=== PATIENT | female | born 1960 | race Caucasian/White ===

== ENCOUNTER 2018-01-11 00:53 | Inpatient (IN) | payer MEDICARE, OTHER ==
[~2018-01-11] VITALS: Ht 149.9 cm; Wt 45.4 kg
--- NOTE | 2018-01-11 01:30 | NUR ---
ADMISSION NOTES: ADMITTED A 57 YEARS OLD FEMALE. PATIENT FROM [facility]. PATIENT ADMITTED 5150 FOR GD. PER HOLD PATIENT HAS UNTREATED SCHIZOPHRENIA WAS NOTED TO BE DRINKING HER OWN URINE AND NOT EATING FOR 3 DAYS. PATIENT CLAIMS SHE IS WITH TWINS. PT IS DELUSIONAL. PT DENIES SI/HI. UPON FACE TO FACE ASSESSMENT PATIENT ALERT AND ORIENTED X2, DISORGANIZED, DISORIENTED, PARANOID, DELUSIONAL . V/S STABLE, NO SOB, RESPIRATION EVEN AND UNLABORED. NO COMPLAIN OF PAIN/DISCOMFORT AT THIS TIME. CHECK FOR CONTRABAND ITEMS. PUT IT IN SAFE CABINET. SKIN/BODY ASSESSMENT DONE. WOUND CONSULT TRIGGERED. MRSA DONE. PATIENT WAS ORIENTED IN THE UNIT AND UNIT POLICIES. REFUSED TO SIGN CONSENT FORMS. ALL NEEDS ATTENDED AND ANTICIPATED. DR. AMANDA FOR PSYCH AND DR. JALLOH FOR MEDICAL WAS MADE AWARE OF THE ADMISSION. ALL NEEDS ATTENDED AND ANTICIPATED. WILL CONTINUE TO MONITOR FOR SAFETY AND BEHAVIOR [id number].
[2018-01-11 01:40] VITALS: BP 120/73
--- NOTE | 2018-01-11 02:04 | NUR ---
SKIN ASSESSMENT: OBTAINED CONSENT FOR PERFORMING BODY CHECK, DEBBIE KAUR TANDEM BODY, WITNESS, PT AGREE TO HAVE BODY CHECK DONE AND GIVEN HER CONSENT TO TAKE PICTURE OF SKIN ISSUES AND PHOTO OF HER FACE. INITIAL BODY CHECK PERFORMED WITH DEBBIE KAUR, NOTED THE FOLLOWING SKIN ISSUES: RIGHT EAR REDNESS (PT STATED SHE'S BEEN USING MASK EVEN AT HOME TO "LESSEN GERMS" CHIN REDNESS LEFT BREAST FOLD EXCORIATION REDNESS WITH ODOR BILATERAL KNEE BRUISES AND ABRASION, PER PT SHE HAD KNEE SURGERY ON October NOTED LEFT LOWER ABDOMEN SURGICAL SCAR, PT CLAIMED SHE HAS BACLOFEN PUMP IN PLACED TO MANAGE HER PAIN LEFT GREAT TOENAIL FUNGUS PERINEAL REDNESS, EXCORIATION WILL OBTAIN WOUND CARE CONSULT AND WILL RECOMMEND PODIATRY CONSULT FOR TOENAIL FUNGUS
[2018-01-11] MEDS ORDERED: LORAZEPAM 0.5 MG TABLET PO PRN (03:00)
[2018-01-11] MEDS ORDERED: MAG HYDROX/AL HYDROX/SIMETH 30 ML UDC PO PRN (03:00)
[2018-01-11] MEDS ORDERED: MAGNESIUM HYDROXIDE 30 ML UDC PO PRN (03:00)
[2018-01-11] MEDS ORDERED: ZOLPIDEM TARTRATE 5 MG TABLET PO PRN ×2 (03:00→08:30)
[2018-01-11] MEDS ORDERED: HYDR-3980 PO (03:59)
[2018-01-11] MEDS ORDERED: ALEN70TA45 PO (03:59)
[2018-01-11] MEDS ORDERED: RISP2TAB23 PO (03:59)
[2018-01-11] MEDS ORDERED: METO-356 PO (03:59)
[2018-01-11] MEDS ORDERED: LEVE500T20 PO (03:59)
[2018-01-11 04:45] VITALS: BP 120/73
[2018-01-11] MEDS ORDERED: HYDROCODONE/APAP 10/325MG 1 EA TABLET PO PRN (05:00)
[2018-01-11] MEDS ORDERED: HYDROCODONE/APAP 10/325MG 1 EA TABLET ONE (05:02)
--- NOTE | 2018-01-11 05:30 | NUR ---
JONNIE JALLOH (MUTTON PUNCHER) 3X TO RECONCILE THE MEDS. SAID SHE WILL RECONCILE THE MEDS. WILL ENDORSE TO NEXT SHIFT NURSE FOR FOLLOW UP.
--- NOTE | 2018-01-11 06:56 | NUR ---
ASK THE PT WITH CHARGE NURSE (JEREMIAH) WITNESSED IF SHE'S ALLERGIC TO HYDROCODONE AND ACETAMINOPHEN MEDICATION. PT SAID I'M NOT ALLERGIC TO IT BECAUSE THAT'S THE MEDICATION I'M TAKING FOR MY PAIN AT HOME.
[2018-01-11 08:00] VITALS: BP 133/65
[2018-01-11] MEDS ORDERED: DIAZ5TAB4 PO (08:15)
[2018-01-11] MEDS ORDERED: CYCL30DR EACHEYE (08:15)
[2018-01-11] MEDS ORDERED: ATOR10TA PO (08:15)
[2018-01-11] MEDS ORDERED: QUET25TA PO (08:15)
[2018-01-11] MEDS: Z GUARD REMEDY 2 OZ OINT TP SCH (11:19)
[2018-01-11] MEDS ORDERED: diphenhydrAMINE HCL 50 MG CAPSULE PO PRN ×2 (15:00→15:30)
--- NOTE | 2018-01-11 15:43 | NUR ---
GPS/RN-NOTES PATIENT REQUESTING TYLENOL FOR HER HEADACHE.LATEX CASTER ABOUT TO GIVE TYLENOL 650MG PRN ORDER BUT PATIENT CHANGE HER MIND AND STATED" NO I DON'T WANT IT". MEDICATION WAS WASTED AND WITNESS BY THE CHARGE NURSE.
[2018-01-11 16:00] VITALS: BP 122/73
--- NOTE | 2018-01-11 16:47 | NUR ---
GPS/RN-NOTES URINE SPECIMEN WAS COLLECTED AND SEND TO LAB.
[2018-01-11 17:09] LABS: APPEARANCE,URINE CLEAR (CLEAR); BILIRUBIN,URINE NEGATIVE (NEGATIVE); BLOOD, URINE NEGATIVE Ery/uL (NEGATIVE); COLOR,URINE YELLOW (YELLOW); KETONES,URINE 2+ (NEGATIVE); LEUKOCYTE ESTERASE ,URINE NEGATIVE (NEGATIVE); NITRITE, URINE NEGATIVE (NEGATIVE); PH,URINE 6.5 (5.0-8.0); PROTEIN,URINE NEGATIVE (NEGATIVE); UGLUCOSE NEGATIVE (NEGATIVE); UROBILINOGEN,URINE 0.2 EU/dL (0.2)
[2018-01-11 17:23] LABS: RBC,URINE 0-2 /HPF (0-2); WBC,URINE 0-2 /HPF (0-3)
[2018-01-11 17:24] LABS: BACTERIA,URINE Few /HPF (None Seen); SQUAMOUS EPITHELIAL CELL,UR Moderate /HPF (None Seen)
--- NOTE | 2018-01-11 19:10 | NUR ---
GPS RN NOTE Patient was seen lying in bed AAOx2, no signs of acute distress, but appeared to be guarded with flat affect. Patient was wearing a face mask due to anxiety related to the spread of germs. Patient's appearance is unkempt. Patient currently has no needs or concerns. Will continue to monitor.
[2018-01-11 20:00] VITALS: BP 131/88
[2018-01-11] MEDS: LEVETIRACETAM (250 MG) 250 MG TABLET PO SCH ×2 (21:00→21:21)
[2018-01-11] MEDS: ACETAMINOPHEN 325 MG TABLET PO PRN (21:21)
[2018-01-11] MEDS: QUETIAPINE FUMARATE 25 MG TABLET PO SCH ×2 (21:21→21:29)
--- NOTE | 2018-01-11 21:29 | NUR ---
GPS RN NOTE - Pt refused meds Patient requested Tylenol for headache. I told her I would get her Tylenol along with her two scheduled medications for the night; the patient was agreeable to this. Upon return with the medications Tylenol, Keppra, and Seroquel, the patient refused all medications. The patient claimed that she did not have any medications scheduled for the night and also claimed that she only took medications in liquid form, not pill form. The patient also refused Tylenol, claiming that she would not take the tablet form, she would only take the capsule form. The patient was clearly agitated, and said "Thank you! Go away now! Good night! Research your medications next time!". I exited the room. The patient is currently in quiet in bed.
[2018-01-12 08:00] VITALS: BP 130/82
[2018-01-12] MEDS: LEVETIRACETAM (250 MG) 250 MG TABLET PO SCH (09:00)
[2018-01-12] MEDS: ATORVASTATIN 10 MG TABLET PO SCH (09:00)
[2018-01-12] MEDS: METOPROLOL SUCCINATE 25 MG TAB.SR.24H PO SCH (09:00)
[2018-01-12] MEDS ORDERED: ESCITALOPRAM OXALATE (10 MG) 10 MG TABLET PO SCH (09:00)
[2018-01-12] MEDS: Z GUARD REMEDY 2 OZ OINT TP SCH (09:03)
--- NOTE | 2018-01-12 09:20 | NUR ---
GPS/RN-NOTES PATIENT REFUSED ALL 0900AM MEDICATIONS. EXPLAINED RISK AND BENEFITS BUT PATIENT GETS ANGRY AND ARGUMENTATIVE WITH THE STAFF SONOGRAPHER. STATED" I WILL NEVER TAKE ANY OF YOUR MEDICATIONS, YOU CAN TAKE IT YOUR SELF IF YOU WANT". OFFERED X3.
--- NOTE | 2018-01-12 10:35 | NUR ---
GPS/RN-NOTES PATIENT REFUSED LAB DRAW DESPITE SEVERAL ATTEMPT BY THE LAB STAFF.
--- NOTE | 2018-01-12 13:47 | NUR ---
GPS/RN-NOTES SEEN BY DR. HORNE WITH VERBAL ORDER OF ENSURE TID. NOTED AND CARRIED OUT. Addendum: 01/12/18 at 1349 by ALE LOUIS RN MD AVILA MADE AWARE OF PATIENT LABS RESULTS.
--- NOTE | 2018-01-12 13:58 | NUR ---
GPS/RN-NOTES DR. HORNE ALSO MADE AWARE OF PATIENT NON COMPLIANT WITH MEDICATIONS.
[2018-01-12 16:16] VITALS: BP 130/76
[2018-01-12] MEDS: ENSURE ENLIVE 237 ML LIQUID (VANILLA) PO SCH (17:00)
[2018-01-12] MEDS: BENZTROPINE MESYLATE (1 MG) 1 MG TABLET PO SCH (17:00)
[2018-01-12] MEDS: HALOPERIDOL 5 MG TABLET PO SCH (17:00)
--- NOTE | 2018-01-12 17:50 | NUR ---
GPS/RN-NOTES PATIENT REFUSED ALL 1700 MEDICATIONS. STATED" YOUR MEDICINE IS FULL OF CRAP,TAKE IT YOURSELF". OFFERED X3.
--- NOTE | 2018-01-12 19:30 | NUR ---
RN NOTES RECEIVED PATIENT IN BED AWAKE, AO X 4, ABLE TO MAKE NEEDS KNOWN. NO ACUTE DISTRESS NOTED. DENIES ANY PAIN AT THIS TIME. DENIERS SI/HI AT THIS TIME. SAFETY REMINDERS GIVEN. ON LOW BED WITH BILATERAL UPPER SIDE RAILS UP. CALL SALAZAR WITHIN EASY REACH. WILL CONTINUE TO MONITOR.
[2018-01-12 20:00] VITALS: BP 126/74
[2018-01-12 20:10] VITALS: BP 126/74
[2018-01-12] MEDS: DIVALPROEX SODIUM 125 MG CAP.SPRINK PO SCH (21:00)
[2018-01-12] MEDS: LEVETIRACETAM SOL (5 ML) 100 MG/ML UDC PO SCH (21:00)
--- NOTE | 2018-01-12 21:21 | NUR ---
RN NOTES PATIENT REFUSED BOTH DEPAKOTE AND LIQUID KEPPRA. PATIENT STATED THAT THEY "ARE NOT THE RIGHT ONES." PER PATIENT, THE MEDICINES "DO NOT LOOK RIGHT." IMPORTANCE OF TAKING THE MEDICINE WAS EXPLAINED TO PATIENT. PATIENT STILL STRONGLY REFUSED TO TAKE MEDICINE.
--- NOTE | 2018-01-13 06:33 | NUR ---
RN NOTES PATIENT ASLEEP, EASILY AROUSABLE. RESPIRATIONS EVEN. NO SIGNS OF PAIN NOTED. NEEDS ATTENDED. KEPT CLEAN, DRY, AND COMFORTABLE. SAFETY PRECAUTIONS AND COMFORT MEASURES IN PLACE. WILL GIVE REPORT TO DAY SHIFT FOR CONTINUITY OF CARE.
[2018-01-13 08:00] VITALS: BP 116/68
[2018-01-13] MEDS: ENSURE ENLIVE 237 ML LIQUID (VANILLA) PO SCH ×3 (08:00→16:56)
[2018-01-13] MEDS: HALOPERIDOL 5 MG TABLET PO SCH (08:59)
[2018-01-13] MEDS: BENZTROPINE MESYLATE (1 MG) 1 MG TABLET PO SCH (08:59)
[2018-01-13] MEDS: DIVALPROEX SODIUM 125 MG CAP.SPRINK PO SCH (08:59)
[2018-01-13] MEDS: Z GUARD REMEDY 2 OZ OINT TP SCH (09:00)
[2018-01-13] MEDS: METOPROLOL SUCCINATE 25 MG TAB.SR.24H PO SCH (09:00)
[2018-01-13] MEDS: LEVETIRACETAM SOL (5 ML) 100 MG/ML UDC PO SCH ×2 (09:00→20:50)
[2018-01-13] MEDS: ATORVASTATIN 10 MG TABLET PO SCH (09:00)
[2018-01-13] MEDS ORDERED: HALOPERIDOL 5 MG TABLET PO SCH (10:30)
[2018-01-13] MEDS ORDERED: HALOPERIDOL ORAL CONC 2 MG/ML BOTTLE PO SCH (11:28)
[2018-01-13] MEDS ORDERED: HALOPERIDOL LACTATE 10 MG/5 ML UDC PO SCH (11:31)
[2018-01-13] MEDS: HALOPERIDOL LACTATE 10 MG/5 ML UDC PO SCH ×2 (12:05→16:47)
[2018-01-13 16:16] VITALS: BP 137/99
[2018-01-13 20:14] VITALS: BP 157/98
[2018-01-14] MEDS: ENSURE ENLIVE 237 ML LIQUID (VANILLA) PO SCH ×3 (08:00→16:27)
[2018-01-14 08:22] VITALS: BP 128/74
[2018-01-14] MEDS: ATORVASTATIN 10 MG TABLET PO SCH (08:29)
[2018-01-14] MEDS: LEVETIRACETAM SOL (5 ML) 100 MG/ML UDC PO SCH ×2 (08:29→21:18)
[2018-01-14] MEDS: HALOPERIDOL LACTATE 10 MG/5 ML UDC PO SCH ×2 (08:29→16:27)
[2018-01-14] MEDS: METOPROLOL SUCCINATE 25 MG TAB.SR.24H PO SCH (08:30)
[2018-01-14] MEDS: BENZTROPINE MESYLATE (1 MG) 1 MG TABLET PO PRN ×2 (08:30→16:27)
[2018-01-14] MEDS: Z GUARD REMEDY 2 OZ OINT TP SCH (11:11)
--- NOTE | 2018-01-14 14:04 | NUR ---
ROSE called the pt's brother, Fox ([phone]), but after a few seconds the dial tone changed into a fax dial tone. The SW will ask the pt to confirm that this is the correct number.
--- NOTE | 2018-01-14 14:07 | NUR ---
ROSE called Alejandra Loredo ([phone]) from [facility] [employer] ([facility]) and left a voicemail stating that the SW would like some more information on a patient.
--- NOTE | 2018-01-14 15:13 | NUR ---
Initial Discharge Plan: Pt currently resides by herself in an apartment located at [address] [place] [address], [place] [address]; ([phone]). Per pt, she would either like to go home or be transferred to a nursing home facility. SW will work with the pt and the MD regarding appropriate discharge planning. SW will form a safe and proper discharge.
--- NOTE | 2018-01-14 16:16 | NUR ---
ROSE faxed a referral for the pt to a alf facility called [facility] to the fax number: [phone].
[2018-01-14 16:18] VITALS: BP 127/75
--- NOTE | 2018-01-14 16:51 | NUR ---
Patient arrived from GPS to be a part of GPS overflow, patient aox3. nonlabored breathing noted on room air. Denying pain at the moment. Denying HI and SI ideation. No sharp objects at bedside. Sitter at bedside. Bed in lowest locked position
[2018-01-14 16:53] VITALS: BP 123/97
--- NOTE | 2018-01-14 19:30 | NUR ---
MS/RN PATIENT AWAKE, ALERT, ORIENTED, COMFORTABLE AND CALM, NO DISTRESS NOTED, SITTER AT BEDSIDE. WILL MONITOR.
--- NOTE | 2018-01-14 23:00 | NUR ---
MS/RN PATIENT IS SLEEPING AT THIS TIME, AROUSABLE, APPEAR COMFORTABLE, NO SIGNS OF DISTRESS NOTED, CALL LIGHT IN REACH. WILL CONTINUE TO MONITOR.
--- NOTE | 2018-01-15 06:44 | NUR ---
MS/RN PATIENT IS AWAKE, COMFORTABLE, NO C/O PAIN, NO SIGNS OF DISTRESS NOTED, ALL NEEDS ATTENDED AT THIS TIME, WILL CONTINUE TO MONITOR.
--- NOTE | 2018-01-15 07:35 | NUR ---
RN NOTES PATIENT A/OX2, NO DISTRESS NOTED, SITTER AT BEDSIDE, KEPT COMFORTABLE, DENIES PAIN OR DISCOMFORT, NEEDS ATTENDED AND MET, CALL LIGHT WITHIN REACH, WILL CONTINUE TO MONITOR.
[2018-01-15] MEDS: ENSURE ENLIVE 237 ML LIQUID (VANILLA) PO SCH ×3 (08:00→16:22)
[2018-01-15] MEDS: ATORVASTATIN 10 MG TABLET PO SCH (09:00)
[2018-01-15] MEDS: METOPROLOL SUCCINATE 25 MG TAB.SR.24H PO SCH (09:32)
[2018-01-15] MEDS: LEVETIRACETAM SOL (5 ML) 100 MG/ML UDC PO SCH ×3 (09:32→21:43)
[2018-01-15] MEDS: Z GUARD REMEDY 2 OZ OINT TP SCH (09:35)
[2018-01-15] MEDS: CHOLECALCIFEROL 1,000 UNIT TABLET (VIT D3) PO SCH (11:15)
[2018-01-15] MEDS: HALOPERIDOL LACTATE 10 MG/5 ML UDC PO SCH ×2 (11:15→16:21)
--- NOTE | 2018-01-15 14:19 | NUR ---
SW received confirmation from [facility] from [place] ([phone]) that the pt was accepted.
--- NOTE | 2018-01-15 14:20 | NUR ---
ROSE spoke to the pt's brother, Larry Hoskins ([phone]), and informed about the discharge plan and he agreed to have his sister be transferred to [facility].
--- NOTE | 2018-01-15 18:44 | NUR ---
RN NOTES PATIENT DENIES SI, PATIENT STATED SHE'S AND SHE'S DUE ON SEPTEMBER. PATIENT'S ABDOMEN APPEARS TO BE ROUND, INFORMED DR. AMANDA AND RECEIVED ORDER FOR URINE TEST. UA SAMPLE PROVIDED BY PATIENT AND SENT TO LAB. PATIENT IN NO DISTRESS. BREATHING EVEN AND UNLABORED, SITTER AT BEDSIDE, NEEDS ATTENDED, WILL ENDORSE TO MERCURY RECOVERER FOR SIMON.
[2018-01-15 20:00] VITALS: BP 133/70
--- NOTE | 2018-01-15 20:00 | NUR ---
MS/RN RECEIVE PATIENT AWAKE, ALERT, ORIENTED, COMFORTABLE, NO C/O PAIN, NO DISTRESS NOTED, SITTER AT BEDSIDE, WILL MONITOR.
[2018-01-16 08:00] VITALS: BP 128/82
[2018-01-16] MEDS: ENSURE ENLIVE 237 ML LIQUID (VANILLA) PO SCH ×3 (08:00→16:20)
[2018-01-16] MEDS: CHOLECALCIFEROL 1,000 UNIT TABLET (VIT D3) PO SCH (08:42)
[2018-01-16] MEDS: METOPROLOL SUCCINATE 25 MG TAB.SR.24H PO SCH (08:42)
[2018-01-16] MEDS: LEVETIRACETAM SOL (5 ML) 100 MG/ML UDC PO SCH ×2 (08:42→20:28)
[2018-01-16] MEDS: HALOPERIDOL LACTATE 10 MG/5 ML UDC PO SCH ×3 (08:42→17:00)
[2018-01-16] MEDS: ATORVASTATIN 10 MG TABLET PO SCH (08:46)
[2018-01-16] MEDS: Z GUARD REMEDY 2 OZ OINT TP SCH (08:49)
[2018-01-16] MEDS ORDERED: HALOPERIDOL DECANOATE IM 100 MG/ML AMPUL IM ONE ×2 (11:30→12:25)
[2018-01-16 16:00] VITALS: BP_SYST 105; BP_DIAS 54; BP_DIAS 84
--- NOTE | 2018-01-16 17:16 | NUR ---
GPS OVERFLOW RN NOTES: MEDICATION NON ADMINISTRATION ' PT REFUSED 1300/1700 HALDOL. PER PT "I AM NOT GOING TO TAKE ANYMORE TODAY. I ALREADY HAD THE SHOT. I WILL TALK TO THE DOCTOR IN THE MORNING. I WILL NOT BE OVERLY MEDICATED." MEDICATION EDUCATION ALONG WITH RISKS AND BENEFITS DISCUSSED WITH PT.
--- NOTE | 2018-01-16 18:29 | NUR ---
GPS OVERFLOW CLOSING NOTES PT REMAINS STABLE. ALL NEEDS ANTICIPATED FOR AND MET. ALL DUE MEDS GIVEN. SHE CONTINUES TO DENY ANY SI/HI AT THIS TIME. SAFETY MEASURES IN PLACE. WILL ENDORSE TO NIGHTSHIFT NURSE FOR SIMON
--- NOTE | 2018-01-16 19:10 | NUR ---
RN NOTES RECEIVED PT IN BED, RESTING COMFORTABLY AT THIS TIME, AROUSES EASILY. A/O X 2, VERBALLY RESPONSIVE. NO DISTRESS, NO SOB NOTED. RESPIRATION IS EVEN AND UNLABORED. NO C/O PAIN OR DISCOMFORT AT THIS TIME. PT ON 1:1 SITTER FOR SAFETY. ALL NEEDS ATTENDED AND MET. KEPT COMFORTABLE. SAFETY PRECAUTIONS OBSERVED. WILL CONT TO MONITOR.
[2018-01-16] MEDS: HYDROCODONE/APAP 10/325MG 1 EA TABLET PO PRN (22:45)
--- NOTE | 2018-01-17 03:35 | NUR ---
PT C/O NAUSEA, NO VOMITING NOTED. PLACED A CALL TO [facility], PER HOTEL OR MOTEL CLEANING SUPERVISOR , THEY WILL PAGE DR. FIERRO, AWAITING FOR A CALL BACK.
--- NOTE | 2018-01-17 04:00 | NUR ---
RECEIVED A CALL BACK FROM DR. FIERRO, NOTIFIED REGARDING PT C/O NAUSEA , RECEIVE AN ORDER FOR ZOFRAN 4 MG Q 6 HOURS PRN, NOTED AND CARRIED OUT
[2018-01-17] MEDS ORDERED: ONDANSETRON HCL 4 MG/5 ML SOLUTION PO PRN (04:30)
[2018-01-17] MEDS ORDERED: ONDANSETRON 4 MG TAB.RAPDIS PO PRN (05:30)
--- NOTE | 2018-01-17 06:35 | NUR ---
RN NOTES PT IN BED, RESTING COMFORTABLY AT THIS TIME, AROUSES EASILY. A/O X 2, VERBALLY RESPONSIVE. NO DISTRESS, NO SOB NOTED. RESPIRATION IS EVEN AND UNLABORED. NO C/O PAIN OR DISCOMFORT AT THIS TIME. PT ON 1:1 SITTER FOR SAFETY. ALL NEEDS ATTENDED AND MET. KEPT COMFORTABLE. SAFETY PRECAUTIONS OBSERVED. WILL ENDORSE TO NEXT SHIFT FOR SIMON..
[2018-01-17 08:00] VITALS: BP 136/76
[2018-01-17] MEDS: ENSURE ENLIVE 237 ML LIQUID (VANILLA) PO SCH ×3 (08:00→16:02)
[2018-01-17] MEDS: ATORVASTATIN 10 MG TABLET PO SCH (08:07)
[2018-01-17] MEDS: METOPROLOL SUCCINATE 25 MG TAB.SR.24H PO SCH (08:31)
[2018-01-17] MEDS: CHOLECALCIFEROL 1,000 UNIT TABLET (VIT D3) PO SCH (08:31)
[2018-01-17] MEDS: LEVETIRACETAM SOL (5 ML) 100 MG/ML UDC PO SCH ×2 (08:32→21:12)
[2018-01-17] MEDS: HALOPERIDOL LACTATE 10 MG/5 ML UDC PO SCH ×3 (08:33→16:02)
[2018-01-17] MEDS: Z GUARD REMEDY 2 OZ OINT TP SCH (08:35)
[2018-01-17 16:00] VITALS: BP 122/76
--- NOTE | 2018-01-17 16:02 | NUR ---
GPS OVERFLOW RN NOTES: HALDOL MEDICATION ADMINISTRATION PT REFUSED 1300/[address] AMANDA MADE AWARE AND STATES "IT'S OKAY IF SHE REFUSED FOR NOW SHE HAS ALREADY HAD THE IM INJECTION YESTERDAY"
--- NOTE | 2018-01-17 19:20 | NUR ---
RN NOTES RECEIVED PT IN BED, RESTING COMFORTABLY AT THIS TIME, AROUSES EASILY. A/O X 2, VERBALLY RESPONSIVE. NO DISTRESS, NO SOB NOTED. RESPIRATION IS EVEN AND UNLABORED. PT WEARS MASK ALL THE TIME, REFUSED TO REMOVE IT, RISK AND BENEFITS EXPLAINED. NO C/O PAIN OR DISCOMFORT AT THIS TIME. PT ON 1:1 SITTER FOR SAFETY. ALL NEEDS ATTENDED AND MET. KEPT COMFORTABLE. SAFETY PRECAUTIONS OBSERVED. WILL CONT TO MONITOR.
[2018-01-17 20:07] VITALS: BP 103/51
[2018-01-18] MEDS: HYDROCODONE/APAP 10/325MG 1 EA TABLET PO PRN ×2 (03:13→18:10)
--- NOTE | 2018-01-18 06:49 | NUR ---
RN NOTES PT IN BED, , AWAKE, A/O X 2, VERBALLY RESPONSIVE. NO DISTRESS, NO SOB NOTED. RESPIRATION IS EVEN AND UNLABORED. NO C/O PAIN OR DISCOMFORT AT THIS TIME. PT ON 1:1 SITTER FOR SAFETY. ALL NEEDS ATTENDED AND MET. KEPT COMFORTABLE. DUE MEDS GIVEN. SAFETY PRECAUTIONS OBSERVED. WILL ENDORSE TO NEXT SHIFT FOR SIMON.
--- NOTE | 2018-01-18 07:38 | NUR ---
RN OPENING NOTES RECEIVED PT. PT IS STABLE, RESTING IN BED. SITTER IS BEDSIDE. PT IS ADM FOR GPS OVERFLOW. A/OX2, NO S/S OF RESP DISTRESS OR C/O SOB. NO C/O PAIN. PT REMAINS CALM, NO DISTRESS NOTED, HOWEVER BEHAVIOR IS SOMEWHAT INAPPROPRIATE THE PT REFUSES TO REMOVE SUNGLASSES AND MASK FOR ASSESSMENT. PER TRANSPORTATION MAINTENANCE SUPERVISOR REPORT, PT FREQUENTLY REFUSES PO MEDS, HALDOL IM NOTED FOR PRN. SAFETY MEASURES IN PLACE, CALL LIGHT WITHIN REACH. WILL CONTINUE TO MONITOR.
[2018-01-18 08:00] VITALS: BP 107/65
[2018-01-18 08:10] VITALS: BP 107/65
[2018-01-18] MEDS: ENSURE ENLIVE 237 ML LIQUID (VANILLA) PO SCH ×3 (08:33→16:20)
[2018-01-18] MEDS: HALOPERIDOL LACTATE 10 MG/5 ML UDC PO SCH ×3 (08:34→16:20)
[2018-01-18] MEDS: CHOLECALCIFEROL 1,000 UNIT TABLET (VIT D3) PO SCH (08:34)
[2018-01-18] MEDS: LEVETIRACETAM SOL (5 ML) 100 MG/ML UDC PO SCH ×2 (08:37→20:53)
[2018-01-18] MEDS: METOPROLOL SUCCINATE 25 MG TAB.SR.24H PO SCH (08:37)
[2018-01-18] MEDS: ATORVASTATIN 10 MG TABLET PO SCH (08:42)
[2018-01-18] MEDS: Z GUARD REMEDY 2 OZ OINT TP SCH (08:44)
[2018-01-18] MEDS: ACETAMINOPHEN 325 MG TABLET PO PRN (14:14)
[2018-01-18 16:00] VITALS: BP 95/55
--- NOTE | 2018-01-18 18:39 | NUR ---
RN CLOSING NOTE PT IN BED RESTING. NO S/S OF RESP DISTRESS OR SOB. NO C/O PAIN. PT GIVEN NORCO AT 1810 FOR C/O PAIN IN NECK/BACK. PT CONTINUED TO REFUSE HALDOL THROUGHOUT SHIFT, MD AWARE. SAFETY MEASURES IN PLACE, CALL LIGHT WITHIN REACH. WILL ENDORSE TO CAUSTIC ROOM OPERATOR FOR SIMON.
--- NOTE | 2018-01-18 19:30 | NUR ---
RN NOTES RECEIVED PT. AWAKE ON BED, SITTER AT BEDSIDE, A/OX2, CALM AND COOPERATIVE AT TIMES, CALL LIGHT WITHIN REACH, WILL CONTINUE TO MONITOR
[2018-01-18 20:00] VITALS: BP 108/66
--- NOTE | 2018-01-19 06:42 | NUR ---
RN NOTES AWAKE , SITTER AT BEDSIDE, MORNING CARE RENDERED, PT. NEEDS ATTENDED,
[2018-01-19] MEDS: LEVETIRACETAM SOL (5 ML) 100 MG/ML UDC PO SCH ×4 (08:31→22:17)
[2018-01-19] MEDS: ENSURE ENLIVE 237 ML LIQUID (VANILLA) PO SCH ×3 (08:31→16:27)
[2018-01-19] MEDS: ATORVASTATIN 10 MG TABLET PO SCH (08:31)
[2018-01-19] MEDS: CHOLECALCIFEROL 1,000 UNIT TABLET (VIT D3) PO SCH (08:31)
[2018-01-19] MEDS: ACETAMINOPHEN 325 MG TABLET PO PRN ×2 (08:31→17:41)
[2018-01-19] MEDS: METOPROLOL SUCCINATE 25 MG TAB.SR.24H PO SCH (08:32)
[2018-01-19] MEDS: HALOPERIDOL LACTATE 10 MG/5 ML UDC PO SCH ×3 (08:35→16:27)
[2018-01-19] MEDS: Z GUARD REMEDY 2 OZ OINT TP SCH (08:38)
--- NOTE | 2018-01-19 09:18 | NUR ---
RN OPENING NOTES RECEIVED PT. PT IS STABLE, RESTING IN BED. SITTER IS BEDSIDE. PT IS ADM FOR GPS OVERFLOW. A/OX2, NO S/S OF RESP DISTRESS OR C/O SOB. NO C/O PAIN. PT REMAINS CALM, NO DISTRESS NOTED, HOWEVER BEHAVIOR IS SOMEWHAT INAPPROPRIATE THE PT REFUSES TO REMOVE SUNGLASSES AND MASK FOR ASSESSMENT. PT CONTINUES TO REFUSE HALDOL AND ATTEMPT TO MODIFY MEDICATION DOSAGES, CONTINUE TO REORIENT AND SET BOUNDARIES. SAFETY MEASURES IN PLACE, CALL LIGHT WITHIN REACH. WILL CONTINUE TO MONITOR.
[2018-01-19 11:02] VITALS: BP 122/85
[2018-01-19] MEDS: HYDROCODONE/APAP 10/325MG 1 EA TABLET PO PRN (14:56)
[2018-01-19 16:24] VITALS: BP 145/90
--- NOTE | 2018-01-19 18:40 | NUR ---
RN CLOSING NOTE PT IN BED RESTING. NO S/S OF RESP DISTRESS OR SOB. NO C/O PAIN. PT GIVEN NORCO AT 1810 FOR C/O PAIN IN NECK/BACK. PT CONTINUED TO REFUSE PSYCH MEDICATION THROUGHOUT SHIFT, MD AWARE. SAFETY MEASURES IN PLACE, CALL LIGHT WITHIN REACH. WILL ENDORSE TO CARE MANAGEMENT SPECIALIST FOR SIMON
--- NOTE | 2018-01-19 19:30 | NUR ---
RN NOTES RECEIVED PT. AWAKE ON BED, A/OX2, SITTER AT BEDSIDE, CALL [facility] WITHIN REACH, [id number], CONTINUE TO MONITOR
[2018-01-19 20:00] VITALS: BP 97/67
--- NOTE | 2018-01-19 21:00 | NUR ---
RN NOTES PT REFUSED HER DUE MEDICATION AND REFUSED BODY ASSESSMENT , REFUSED PHOTO WELL
--- NOTE | 2018-01-20 06:28 | NUR ---
RN NOTES AWAKE, MORNING CARE RENDERED, SITTER AT BEDSIDE, PT. NEEDS ATTENDED
--- NOTE | 2018-01-20 07:38 | NUR ---
RN OPENING NOTES RECEIVED PT. PT IS STABLE, RESTING IN BED. SITTER IS BEDSIDE. PT IS ADM FOR GPS OVERFLOW. A/OX2, NO S/S OF RESP DISTRESS OR C/O SOB. NO C/O PAIN. PT REMAINS CALM, NO DISTRESS NOTED, HOWEVER BEHAVIOR CONTINUES TO BE INAPPROPRIATE THE PT REFUSES TO REMOVE SUNGLASSES AND MASK FOR ASSESSMENT. PT CONTINUES TO REFUSE HALDOL/KEPPRA AND ATTEMPT TO MODIFY MEDICATION DOSAGES, CONTINUE TO REORIENT AND SET BOUNDARIES. SAFETY MEASURES IN PLACE, CALL LIGHT WITHIN REACH. WILL CONTINUE TO MONITOR.
[2018-01-20 08:00] VITALS: BP 96/57
[2018-01-20] MEDS: ENSURE ENLIVE 237 ML LIQUID (VANILLA) PO SCH ×3 (08:00→17:00)
[2018-01-20] MEDS: CHOLECALCIFEROL 1,000 UNIT TABLET (VIT D3) PO SCH (08:31)
[2018-01-20] MEDS: ATORVASTATIN 10 MG TABLET PO SCH (08:32)
[2018-01-20] MEDS: LEVETIRACETAM SOL (5 ML) 100 MG/ML UDC PO SCH ×2 (08:32→21:25)
[2018-01-20] MEDS: METOPROLOL SUCCINATE 25 MG TAB.SR.24H PO SCH (08:32)
[2018-01-20] MEDS: HALOPERIDOL LACTATE 10 MG/5 ML UDC PO SCH ×3 (08:32→17:00)
[2018-01-20] MEDS: ACETAMINOPHEN 325 MG TABLET PO PRN (08:32)
[2018-01-20] MEDS: Z GUARD REMEDY 2 OZ OINT TP SCH (08:41)
[2018-01-20 09:00] VITALS: BP 97/62
[2018-01-20 16:00] VITALS: BP 105/52
--- NOTE | 2018-01-20 16:24 | NUR ---
ROSE spoke to the pt's brother, Larry Hoskins ([phone]), and informed him that the pt is being discharged tomorrow.
--- NOTE | 2018-01-20 18:46 | NUR ---
RN CLOSING NOTE PT IN BED RESTING. NO S/S OF RESP DISTRESS OR SOB. NO C/O PAIN. PT GIVEN NORCO AT 1830 FOR C/O PAIN IN NECK/BACK. PT CONTINUED TO REFUSE PSYCH MEDICATION THROUGHOUT SHIFT, AWARE. PT TO BE D/C TMR TO [facility]. SAFETY MEASURES IN PLACE, CALL LIGHT WITHIN REACH. WILL ENDORSE TO SOCIALLY RESPONSIBLE INVESTMENT ADVISER FOR SIMON
--- NOTE | 2018-01-20 19:45 | NUR ---
RN OPENING NOTES RECEIVED REPORT FROM DAYSHIFT RN RHINA. FOUND Pt AWAKE, RESTING IN BED. NO S/S OF ACUTE DISTRESS OR SOB NOTED. Pt IS A/OX1-2, VERBAL, ABLE TO MAKE NEEDS KNOWN. GPS OVERFLOW. ON 5250 HOLD, EXP 01/27/18. NO IV ACCESS. SITTER AT BEDSIDE. SAFETY MEASURES IN PLACE. BED LOW, LOCKED, HOB ELEVATED, & SIDE RAILS UP. WILL CONTINUE TO MONITOR Pt THROUGHOUT THE NIGHT FOR SAFETY. DC TOMORROW TO [facility] AND WILL CONTINUE 5250 HOLD FROM THERE.
[2018-01-20 20:00] VITALS: BP 95/55
[2018-01-21] MEDS: ACETAMINOPHEN 325 MG TABLET PO PRN (03:21)
--- NOTE | 2018-01-21 06:45 | NUR ---
RN CLOSING NOTES NO SIGNIFICANT CHANGES IN Pt's CONDITION. Pt REMAINS STABLE AT THIS TIME. NO S/S OF ACUTE DISTRESS OR SOB NOTED DURING THE NIGHT. ALL NEEDS MET AND ATTENDED TO. SAFETY MEASURES IN PLACE. BED LOW, LOCKED, HOB ELEVATED, & SIDE RAILS UP. SITTER AT BEDSIDE. Pt BEING DISCHARGED TODAY TO [id number] SCHEDULED FOR COMPUTER ANALYST AT 11AM. WILL ENDORSE TO DAYSHIFT RN FOR Pt's SIMON.
--- NOTE | 2018-01-21 07:45 | NUR ---
RN GPS OVERFLOW OPENING NOTES RECEIVED Pt AWAKE, RESTING IN BED. NO S/S OF ACUTE DISTRESS OR SOB NOTED. Pt IS A/OX1-2, VERBAL, ABLE TO MAKE NEEDS KNOWN. GPS OVERFLOW. ON 5250 HOLD, EXP 01/27/18. NO IV ACCESS. SITTER AT BEDSIDE. SAFETY MEASURES IN PLACE. BED LOW, LOCKED, HOB ELEVATED, & SIDE RAILS UP. WILL CONTINUE TO MONITOR POSSIBLE DC TOMORROW TO [facility] AND WILL FOLLOW UP WITH MD AND PSYCHIATRIST
[2018-01-21 08:00] VITALS: BP 112/60
[2018-01-21] MEDS: ENSURE ENLIVE 237 ML LIQUID (VANILLA) PO SCH ×2 (08:00→12:00)
[2018-01-21] MEDS: HALOPERIDOL LACTATE 10 MG/5 ML UDC PO SCH (09:00)
[2018-01-21] MEDS: ATORVASTATIN 10 MG TABLET PO SCH ×2 (09:00→09:18)
[2018-01-21] MEDS: LEVETIRACETAM SOL (5 ML) 100 MG/ML UDC PO SCH (09:17)
[2018-01-21 09:18] VITALS: BP 112/60
[2018-01-21] MEDS: CHOLECALCIFEROL 1,000 UNIT TABLET (VIT D3) PO SCH (09:18)
[2018-01-21] MEDS: METOPROLOL SUCCINATE 25 MG TAB.SR.24H PO SCH (09:18)
[2018-01-21] MEDS: Z GUARD REMEDY 2 OZ OINT TP SCH (09:25)
--- NOTE | 2018-01-21 10:45 | NUR ---
RN NOTES DR. AMANDA IN UNIT WITH ORDERS TO DC PT, WILL CONTINUE TO ASSIST WITH DC PROCESS AND CONTINUE TO MONITOR
--- NOTE | 2018-01-21 11:58 | NUR ---
Discharge Note: Pt was discharged to [facility] ([facility]) located at [address] [place] [address]; ([phone]). Pt was transported via [facility] (Trip #[id number]) at 11AM. Pts brother, Larry Hoskins ([phone]), was informed of this discharge and approved of it. Upon discharge, the pt appeared to be somewhat depressed and anxious. Pt appeared to be tearful from having to leave the facility because she was scared about her next placement. Pt denied suicidal and homicidal ideation as well as visual and auditory hallucinations. Pt will be under the care of psychiatrist, Dr. Win, located at [address] [address], [place] [address]; and her annealing operator, Dr. Heck, located at [address] [place] [address]; .
--- NOTE | 2018-01-21 12:20 | NUR ---
RN NOTES/DISCHARGE DISCHARGE INSTRUCTIONS AND PAPERWORK REVIEWED WITH GPS FAUSTO WOOD, REVIEWED WITH PT AND SNF RN CAMPBELL WITH NOTED VERBAL UNDERSTANDING. PT WITH NO IV SITE, PICTURES OF SKIN REFUSED X3 NURSING EDUCATION REINFORCED. PT REFUSING TO TAKE HALDOL AND LIPITOR DR. AMANDA AWARE AND OKAY TO DISCHARGE PATIENT. ALL BELONGINGS ACCOUNTED FOR REVIEWED LIST AND ALL BELONGINGS TAKEN WITH PT. RETURNED MEDICATION IN PHARMACY. PATIENT ABLE TO SIGN ALL DISCHARGE PAPERWORK, REPORT GIVEN TO EMT FOR CONTINUITY OF CARE. PT DENIES SI, HI, AND AUDITORY AND VISUAL HALLUCINATIONS, PT DISCHARGED IN STABLE CONDITION
--- NOTE | 2018-01-21 16:00 | NUR ---
RN NOTES RECEIVED CALL FROM GORDON ANGUIANO PER CAMPBELL ADMITTING NURSE STATING WANTING INFORMATION ABOUT "PUMP" RELAYED PT IS NOT USING PUMP AT THIS TIME, MD HAS NOT GIVEN ORDERS FOR MEDICATION ADMINISTRATION. CAMPBELL CONTINUOUSLY RAISING VOICE TO ASK ABOUT PUMP, MADE CAMPBELL AWARE PT REFUSING PICTURES OF SKIN AND WILL ASSIST WITH SW TO OBTAIN INFORMATION
--- NOTE | 2018-01-21 17:20 | NUR ---
RN NOTES RECEIVED CALL FROM GORDON ANGUIANO PER [facility] ADMITTING NURSE STATING WANTING INFORMATION ABOUT "PUMP" RELAYED PT IS NOT USING PUMP AT THIS TIME, MD HAS NOT GIVEN ORDERS FOR MEDICATION ADMINISTRATION. CAMPBELL CONTINUOUSLY RAISING VOICE TO ASK ABOUT PUMP, MADE CAMPBELL AWARE PT REFUSING PICTURES OF SKIN AND WILL ASSIST WITH SW TO OBTAIN INFORMATION, SW ASSISTING WITH PROCESS
== END 2018-01-21 12:20 | DRG 885 ==
LOC: GPS 00:53 → GPSOV2 01-14 16:32
PROVIDERS: ADMIT Psychiatry & Neurology Psychiatry; ATTEND Psychiatry & Neurology Psychiatry
DX: F31.9 Bipolar disorder, unspecified (principal); B49 Unspecified mycosis; F29 Unspecified psychosis not due to a substance or known physiological condition; E78.5 Hyperlipidemia, unspecified; Z73.6 Limitation of activities due to disability; F20.9 Schizophrenia, unspecified; G40.909 Epilepsy, unspecified, not intractable, without status epilepticus
CPT/HCPCS: 36415; 70450-TC; 81000-TC; 82306; 84703-TC; 87081-TC; J1631; J1953; Q0162; Z7610

== ENCOUNTER 2018-02-04 13:30 | Outpatient (CLI) | payer MEDICARE, OTHER ==
[~2018-02-04 13:30] MED LIST: ALEN70TA45 PO; ATOR10TA PO; CYCL30DR EACHEYE; HYDR-3980 PO; LEVE500T20 PO; METO-356 PO
== END 2018-02-04 23:59 ==
LOC: MSC 13:30
PROVIDERS: ATTEND Anesthesiology
DX: M25.562 Pain in left knee (principal); M25.561 Pain in right knee; Z91.81 History of falling; F20.9 Schizophrenia, unspecified; G80.9 Cerebral palsy, unspecified; Z97.8 Presence of other specified devices

== ENCOUNTER → 2018-02-25 | Outpatient (CLI) | payer MEDICARE, OTHER | LOC: MSC 10:00 | PROVIDERS: ATTEND Anesthesiology | DX: M17.12 Unilateral primary osteoarthritis, left knee (principal); F20.9 Schizophrenia, unspecified; G80.1 Spastic diplegic cerebral palsy; M54.5 Low back pain ==